=== PATIENT | female | born 1960 | race African-American/Black ===

== ENCOUNTER 2017-08-02 15:44 | Emergency (ER) | payer OTHER ==
--- NOTE | 2017-08-02 17:54 | PHYS DOC ---
General Chief Complaint: DENTAL PROBLEM Stated Complaint: SORE THROAT Time Seen by MD: 15:50 Source: patient Exam Limitations: no limitations Problems: History of Present Illness Initial Comments Patient is a 56-year-old female who comes to the ED complaining of altered sensation in her mouth. Patient states that for the past days to weeks and has felt as if she had pepper on top of her tongue. She states that it has burn and itch and today has felt as if her tongue might be swelling. She also states that today that sensation has been spreading down her throat although she denies dysphasia difficulty breathing coughing or wheezing. She does feel a lump in throat and is mildly hoarse. Her only new known exposures are new vitamins she has begun taking. When she was advised to stop taking them temporarily she stated "but they are really good vitamins." She did agree to stop taking home until she follows up with her doctor. She has no bumps exudates dental pain or other oral lesions. She denies fever chills or body aches no headache or throat pain and no other complaints. Timing/Duration: last week Severity: mild Location: mouth Prearrival Treatment: no prearrival treatment Modifying Factors: improves with other Associated Symptoms: voice change, other Allergies: Coded Allergies: No Known Drug Allergies (Unverified , 08/02/17) Past Medical History Medical History: no pertinent history Surgical History: noncontributory Social History Smoker: non-smoker Alcohol: none Drugs: none Constitutional: denies chills, denies diaphoresis, denies fever, denies malaise Ears: denies dizziness, denies pain Nose: denies clots, denies congestion Mouth: see HPI Throat: see HPI, denies neck stiffness Respiratory: denies cough, denies shortness of breath, denies wheezing Cardiovascular: denies chest pain, denies palpitations, denies syncope Gastrointestinal: denies nausea, denies vomiting Neurological: see HPI Physical Exam General Appearance: WD/WN, no apparent distress Eyes: bilateral eye normal inspection, bilateral eye PERRL, bilateral eye EOMI Ears: bilateral ear auricle normal, bilateral ear canal normal, bilateral ear TM normal Nose: normal inspection Mouth/Throat: normal mouth inspection, pharynx normal Neck: non-tender, supple Cardiovascular/Respiratory: normal peripheral pulses, normal breath sounds, no respiratory distress 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 As her only known new exposure is vitamins I encouraged her to discontinue them until cleared by her doctor. I discussed Benadryl Pepcid and Solu-Medrol, the patient is very apprehensive about getting a shot but she is more motivated to feel better and so she is agreeable. RN reported to me that the patient had a near syncopal episode presumably vasovagal after administration of intramuscular Solu-Medrol. Patient had been very scared about the shot and her blood pressure didn't drop temporarily while rebound quickly. Within minutes the patient was walking through the hallways with the ER in and the patient was requesting discharge home. It does appear to be a vasovagal type reaction to the needlestick and I have no reservations letting her discharge home. She did not have any chest pain or trouble breathing no headache or focal weakness no nausea or vomiting. I discussed the treatment plan including prednisone as well as [id number] medications to work adjunctively. I discussed close follow-up with her doctor she expressed agreement and understanding with the treatment plan. Departure Time of Disposition: 17:53 Disposition: 01 HOME, SELF-CARE Diagnosis: allergic reaction NOS Condition: STABLE Patient Instructions: Allergy Tests Additional Instructions: As discussed your symptoms are consistent with possible allergic reaction. Discontinue your new vitamins until cleared by your doctor. Take saax-okx-cokcada Pepcid and Benadryl while taking prednisone. Prescription: Prednisone 20 mg quantity 10 Follow-up with your doctor on Friday for recheck and to discuss further use of a vitamins. Return to ED or changing symptoms. ABDIRAHMAN LIN DO Aug 02, 2017 17:54
[2017-08-02] MEDS ORDERED: PRED20TA PO (17:55)
[2017-08-02] MEDS: methylPREDNISolone SOD SUCC PF 125 MG/2 ML VIAL. IM ONE (18:00)
[2017-08-02 18:36] VITALS: BP 89/56
== END 2017-08-02 18:50 | disposition home or self-care (01) ==
LOC: ER 15:44
DX: R49.0 Dysphonia (principal); R22.0 Localized swelling, mass and lump, head; T50.995A Adverse effect of other drugs, medicaments and biological substances, initial encounter; Y92.89 Other specified places as the place of occurrence of the external cause
CPT/HCPCS: 96372; 99283; J2930

== ENCOUNTER → 2020-11-24 | Outpatient (CLI) | payer BC ==
[~2020-11-24] MED LIST: PRED20TA PO
--- NOTE | 2020-11-24 12:28 | RAD ---
EXAM: Right shoulder, 4 views. HISTORY: Pain. COMPARISON: None. FINDINGS: 4 views of the right shoulder obtained. There is no fracture, dislocation or subluxation. T here is mild marginal humeral head spurring. IMPRESSION: Mild glenohumeral osteoarthritis. Electronically signed by: Mariam Kathleen MD (11/24/2020 12:25 PM) [id number]
== END ==
LOC: DXRAD 11:35
PROVIDERS: ATTEND Family Medicine
DX: M19.011 Primary osteoarthritis, right shoulder (principal); M77.8 Other enthesopathies, not elsewhere classified
CPT/HCPCS: 73030

== ENCOUNTER → 2020-12-29 | Outpatient (CLI) | payer BC ==
--- NOTE | 2020-12-29 13:21 | RAD ---
EXAM: Bilateral knees, 3 views. HISTORY: Pain. COMPARISON: 03/28/2016 FINDINGS: 3 views of both knees are obtained. There is bilateral medial compartment joint space narro wing and subchondral sclerosis. There is bilateral medial and lateral compartment and left patellofem oral compartment spurring. There are trace joint effusions. There is mild left genu varus. IMPRESSION: 1. Mild left greater than right medial compartment predominant osteoarthritis of both knees with trac e joint effusions. 2. Mild left genu varus. Electronically signed by: Mariam Kathleen MD (12/29/2020 1:19 PM) [id number]
--- NOTE | 2020-12-29 15:37 | RAD ---
EXAM: AP, lateral, bilateral oblique and open-mouth odontoid views DATE: 12/29/2020 10:52 AM CLINICAL HISTORY: Reason: BILATERAL KNEE PAIN, RADICULOPATHY CERVICAL REGION / Spl. Instructions: / History: COMPARISON: None available. FINDINGS: On the lateral view, the cervical spine is imaged from the skull base to mid C7. Vertebral body heights are preserved. Mild C4-5 and C6-7, moderate C5-6 disc height loss. Straighteni ng of the normal cervical lordosis. No spinal listhesis. Renal space is preserved. On the bilateral o blique views, there is minimal C4-5 and C5-6 neural foraminal narrowing, greater on the right. No spondylolisthesis. Normal predental space. Atlantodental degenerative changes are seen. No significant prevertebral soft tissue swelling. IMPRESSION: 1. Multilevel spondylosis as above, most prominent at C5-6. 2. Negative acute fracture or subluxation. Electronically signed by: Kris Drake MD (12/29/2020 3:35 PM) [id number]
== END ==
LOC: RAD 10:21
PROVIDERS: ATTEND Orthopaedic Surgery
DX: M17.0 Bilateral primary osteoarthritis of knee (principal); M47.22 Other spondylosis with radiculopathy, cervical region; M21.162 Varus deformity, not elsewhere classified, left knee
CPT/HCPCS: 72050; 73560; 73565

== ENCOUNTER → 2021-02-16 | Outpatient (CLI) | payer BC ==
--- NOTE | 2021-02-27 15:30 | RAD ---
DATE: 02/16/2021 EXAM: MAMMO DAVID SCREENING BILATERAL HISTORY: Screening mammogram COMPARISON: 01/06/2020, 09/28/2018 This study was interpreted with the benefit of Computerized Aided Detection (CAD). Breast Density: SCATTERED The breast parenchyma shows scattered fibroglandular densities. Breast parenchyma level B. FINDINGS: There is a 5 mm circumscribed mass in the upper outer right breast, 5 cm posterior to the nipple at approximately 10:00. No mass in the left breast. No suspicious calcification or architectural distortion. IMPRESSION: 5 mm mass in the upper outer right breast. Recommend spot compression CC and MLO views and ultrasound further evaluate. BI-RADS CATEGORY: 0 INCOMPLETE: NEEDS ADDITIONAL IMAGING EVALUATION AND/OR PRIOR MAMMOGRAMS FOR COMPARISON. RECOMMENDED FOLLOW-UP: ADD ADDITIONAL IMAGING PQRS compliance statement: Patient information was entered into a reminder system with a target due date for the next mammogram. Mammography is a sensitive method for finding small breast cancers, but it does not detect them all and is not a substitute for careful clinical examination. A negative mammogram does not negate a clinically suspicious finding and should not result in delay in biopsying a clinically suspicious abnormality. "Our facility is accredited by the [employer] Mammography Program."
== END ==
LOC: MAMMO 15:11
PROVIDERS: ATTEND Family Medicine
DX: Z12.31 Encounter for screening mammogram for malignant neoplasm of breast (principal); N63.11 Unspecified lump in the right breast, upper outer quadrant
CPT/HCPCS: 77063; 77067

== ENCOUNTER → 2021-03-02 | Outpatient (CLI) | payer BC ==
--- NOTE | 2021-03-02 10:56 | RAD ---
EXAMINATION: MG DIAGNOSTICUNILAT MAMMO, US BREAST RT History: Recalled from screening mammogram for right breast nodule Comparison: Screening mammogram 02/16/2021. Technique: Spot compression CC and MLO views of the upper outer right breast were obtained. Focused u ltrasound of the upper outer right breast in the area of concern was performed FINDINGS: MAMMOGRAM: Breast Tissue Density B : There are scattered areas of fibroglandular density. The 5 mm nodule persists on spot compression and has a margins.. ULTRASOUND: At 10:00, 5 cm from the nipple, there is a 4 x 5 x 2 mm circumscribed anechoic cyst corre lating with the mammographic abnormality. This has posterior acoustic enhancement and no vascularity. At 9:00, 7 cm from the nipple, there is a 3 x 6 x 3 mm circumscribed anechoic cyst with a thin septa tion. This has posterior acoustic enhancement and no vascularity. At 9:00, 5 cm the nipple, there is a 3 x 3 x 3 mm anechoic cyst with a slightly thickened echogenic rim. This also has posterior acousti c enhancement and no internal vascularity. IMPRESSION: There is a probably benign cyst with slightly thickened echogenic rim at 9:00 5 cm from the nipple an d 2 additional benign cysts in the upper outer right breast, one of which correlates with the mammogr aphic abnormality. Recommend 6 month follow-up ultrasound of the probably benign cyst at 9:00 5 cm fr om the nipple. BI-RADS category 3: Probably benign. Recommendation: 6 month follow-up ultrasound of the right breast. Patient information is entered into the reminder system with a target due date for the next screening mammogram. Mammography is the most sensitive method for finding small breast cancers, but it does not detect the m all and is not a substitute for careful clinical examination. A negative mammogram does not negate a clinically suspicious finding and should not result in delay in biopsying a clinically suspicious a bnormality. "Our facility is accredited by the [employer] Mammography Program." Electronically signed by: Hodan Reveles MD (03/02/2021 10:54 AM) [id number]
== END ==
LOC: MAMMO 09:56
PROVIDERS: ATTEND Family Medicine
DX: N60.01 Solitary cyst of right breast (principal)
CPT/HCPCS: 76641; 77065

== ENCOUNTER → 2021-04-25 | Outpatient (CLI) | payer BC ==
--- NOTE | 2021-04-25 16:51 | RAD ---
EXAM: Left hand, 3 views. HISTORY: Jammed third finger. COMPARISON: None. FINDINGS: 3 views of the left hand are obtained. There is no acute fracture, dislocation or subluxati on. There is no radiodense foreign body. IMPRESSION: No acute osseous finding. Electronically signed by: Mariam Kathleen MD (04/25/2021 4:49 PM) [id number]
== END ==
LOC: DXRAD 16:02
PROVIDERS: ATTEND Family Medicine
DX: M79.642 Pain in left hand (principal)
CPT/HCPCS: 73130

== ENCOUNTER → 2021-08-30 | Outpatient (CLI) | payer BC ==
--- NOTE | 2021-08-30 15:59 | RAD ---
EXAM: Right breast ultrasound. HISTORY: Six-month follow-up right breast nodules. COMPARISON: 03/02/2021, 02/16/2021. FINDINGS: Sonography of the right breast was performed at the sites of prior concern. Multiple complicated cysts appear benign and unchanged since the prior study. At the 9:00 position, 5 cm from the nipple, there is a complicated cyst at 2 mm. A septated benign cyst at the 9:00 position 7 cm from the nipple measures 6 x 4 mm. Another benign cyst at the 10:00 position 5 cm from nipple m easures 6 x 5 mm. There is no suspicious sonographic finding. Images of the right axilla reveal leonel l-appearing axillary nodes. IMPRESSION: 1. BI-RADS Category 2: Benign findings. 2. Resume bilateral screening mammography in 6 months. Electronically signed by: Lorin Goss MD (08/30/2021 3:56 PM) [id number]
== END ==
LOC: US 14:53
PROVIDERS: ATTEND Family Medicine
DX: N60.01 Solitary cyst of right breast (principal); R92.8 Other abnormal and inconclusive findings on diagnostic imaging of breast
CPT/HCPCS: 76642

== ENCOUNTER → 2022-04-09 | Outpatient (CLI) | payer BC ==
--- NOTE | 2022-04-10 09:01 | RAD ---
XR KNEE_AP BILAT STANDING, XR KNEE 1-2 VIEWS History: Reason: CHRONIC KNEE PAIN / Spl. Instructions: / History: Technique: 3 views bilateral knees with standing AP view Comparison: December 29, 2020 Findings: Right knee: No dislocation. No acute fracture. Mild right knee degenerative changes most prominent wi thin the medial and patellofemoral compartment. No significant knee joint effusion. Left knee: Mild left knee degenerative changes most prominent within the medial and patellofemoral co mpartment. Minimal knee joint effusion. Genu varus alignment. Impression: 1. Mild bilateral knee DJD, similar compared to prior. Electronically signed by: Manny Rojas DO (04/10/2022 8:59 AM) [id number]
== END ==
LOC: RAD 13:11
PROVIDERS: ATTEND Orthopaedic Surgery
DX: M17.0 Bilateral primary osteoarthritis of knee (principal); M25.462 Effusion, left knee; M25.461 Effusion, right knee; M21.162 Varus deformity, not elsewhere classified, left knee; M21.161 Varus deformity, not elsewhere classified, right knee
CPT/HCPCS: 73565; 73560-50